=== PATIENT | male | born 1975 | race American Indian/Alaskan Native ===

== ENCOUNTER 2020-09-28 17:52 | Emergency (ER) | payer SELFPAY ==
[2020-09-28 19:33] VITALS: BP 136/73
--- NOTE | 2020-09-28 19:37 | Event Note ---
ED Screening Note ED Screening Note: states he has a right sided inguinal hernia states he had a repair first in 2005 and again in 2007 states he has not seen a general surgeon states he has been to [facility] multiple times states he is having lower abd pain and right sided scrotal pain no fever no vomiting states he is having difficulty having BM This initial assessment/diagnostic orders/clinical plan/treatment(s) is/are subject to change based on patients health status, clinical progression and re- assessment by fellow clinical providers in the ED. Further treatment and workup at subsequent clinical providers discretion. Patient/guardian urged not to elope from the ED as their condition may be serious if not clinically assessed and managed. 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
--- NOTE | 2020-09-28 20:16 | XRay Report ---
ABDOMEN 2 VIEWS INDICATION / CLINICAL INFORMATION: abd pain. COMPARISON: None available. FINDINGS: Normal bowel gas pattern. No evidence of obstruction or pneumoperitoneum Signer Name: Henry Johnson MD FACR Signed: 09/28/2020 8:12 PM Workstation Name: [id number]
[2020-09-28 20:25] LABS: Basophils # (Auto) 0.1 K/mm3 (0.0-0.1); Basophils % (Auto) 1.1 % (0.0-1.8); Eosinophils # (Auto) 0.4 K/mm3 (0.0-0.4); Eosinophils % (Auto) 5.2 % (0.0-4.3); Hemoglobin 15.5 gm/dl (11.8-15.2); Lymphocytes % (Auto) 29.5 % (13.4-35.0); Mean Corpuscular HGB Conc 34 % (32-34); Mean Corpuscular Volume 90 fl (84-94); Monocytes # (Auto) 0.9 K/mm3 (0.0-0.8); Monocytes % (Auto) 13.5 % (0.0-7.3); Platelet Count 231 K/mm3 (140-440)
[2020-09-28 21:17] LABS: Alanine Aminotransferase 11 units/L (7-56); BUN/Creatinine Ratio 14; Blood Urea Nitrogen 11 mg/dL (9-20); Hemolysis Index 25
--- NOTE | 2020-09-28 21:23 | Ultrasound Report ---
US scrotum INDICATION / CLINICAL INFORMATION: scrotal pain. COMPARISON: None available. FINDINGS: The testicles are normal in size. There is a questionable small hydrocele and small varicocele on the right. No other focal abnormalities identified. Normal symmetric blood flow seen in both testicles. IMPRESSION: Additional small hydrocele and varicocele on the right, otherwise negative exam. Normal symmetric blo od flow seen in both testicles Signer Name: Henry Johnson MD FACR Signed: 09/28/2020 9:18 PM Workstation Name: [email or web address] [id number]
== END 2020-09-29 01:03 | disposition left against medical advice (07) ==
LOC: ED 17:52
DX: K40.90 Unilateral inguinal hernia, without obstruction or gangrene, not specified as recurrent (principal); Z53.21 Procedure and treatment not carried out due to patient leaving prior to being seen by health care provider
CPT/HCPCS: 36415; 74019; 76870; 80053; 85025